=== PATIENT | female | born 1980 | race Caucasian/White ===

== ENCOUNTER 2017-09-07 17:33 | Emergency (ER) | payer BC, OTHER ==
[2017-09-07] MEDS: IBUPROFEN 600 MG TAB PO (19:09)
== END 2017-09-07 19:17 | disposition home or self-care (01) ==
LOC: E/R 17:33
DX: S93.401A Sprain of unspecified ligament of right ankle, initial encounter (principal); S93.601A Unspecified sprain of right foot, initial encounter; S90.31XA Contusion of right foot, initial encounter; X58.XXXA Exposure to other specified factors, initial encounter; Y92.9 Unspecified place or not applicable
CPT/HCPCS: 73610; 73610-RT; 73630; 93971; 99284-25